=== PATIENT | female | born 1990 ===

== ENCOUNTER → 2021-06-08 | Outpatient (CLI) | payer SELFPAY ==
[2021-06-09 17:05] LABS: CORONAVIRUS (COVID19) CSH-NRL Positive (Negative)
== END ==
LOC: LAB SHORT 08:09
PROVIDERS: Physician Assistant
DX: U07.1 COVID-19 (principal)
CPT/HCPCS: U0003

== ENCOUNTER → 2024-02-19 | Outpatient (CLI) | payer OTHER ==
[2024-02-24 15:44] LABS: HPV HIGH RISK BY TMA Not Detected; HPV SOURCE Cervical
== END | disposition home or self-care (01) ==
LOC: LAB 10:42 → LAB SHORT 10:42
PROVIDERS: Advanced Practice Midwife
DX: Z01.419 Encounter for gynecological examination (general) (routine) without abnormal findings (principal)
CPT/HCPCS: 87624; G0123

== ENCOUNTER → 2024-07-29 | Outpatient (CLI) | payer OTHER | END | disposition home or self-care (01) | LOC: LAB SHORT 15:34 → LAB 15:34 | DX: Z34.03 Encounter for supervision of normal first pregnancy, third trimester (principal) | CPT/HCPCS: 87081; 87150 ==

== ENCOUNTER 2024-09-01 09:00 | Inpatient (IN) | payer OTHER ==
[2024-09-01] VITALS (19 sets, daily range): BP systolic 88–130; BP diastolic 53–90
[~2024-09-01] VITALS: Ht 170.2 cm; Wt 81.0 kg
[2024-09-01] MEDS ORDERED: Ondansetron HCl 2 MG / ML 2ML Vial IV PRN (09:25)
[2024-09-01] MEDS ORDERED: Carboprost Tromethamine 250 MCG/ML 1ML Amp IM PRN (09:25)
[2024-09-01] MEDS ORDERED: Penicillin G Potassium 5,000,000 UNITS in NS 250 ML IV ONE (09:25)
[2024-09-01] MEDS ORDERED: Methylergonovine Maleate 0.2MG / ML 1ML Amp IM PRN (09:25)
[2024-09-01] MEDS ORDERED: Tranexamic Acid 100 ML IV SCH (09:25)
[2024-09-01] MEDS ORDERED: Acetaminophen 500 MG Tab PO PRN (09:25)
[2024-09-01] MEDS ORDERED: Lactated Ringer's 1,000 ML IV PRN ×2 (09:25→21:35)
[2024-09-01] MEDS ORDERED: Calcium Carbonate 500 MG Tab Chew PO SCH (09:25)
[2024-09-01] MEDS ORDERED: Misoprostol 200 MCG Tab PR PRN (09:25)
[2024-09-01] MEDS ORDERED: Oxytocin 10 Unit / ML Vial IM PRN (09:25)
[2024-09-01] MEDS ORDERED: OXYTOCIN/RINGER'S LACTATE 500 ML IV PRN (09:25)
[2024-09-01] MEDS ORDERED: Misoprostol 200 MCG Tab BC PRN (09:25)
[2024-09-01] MEDS ORDERED: ePHEDrine Sulfate 50 MG/ML 1ML Injection XX PRN (09:30)
[2024-09-01] MEDS ORDERED: FentaNYL 2mcg/ml-Bup 0.1% Epd 250 ML EPI PRN (09:30)
[2024-09-01] MEDS ORDERED: Lactated Ringer's 1,000 ML IV SCH ×2 (09:30)
[2024-09-01 09:47] LABS: BASOPHILS ABSOLUTE AUTO 0.04 K/mm3 (0.00-0.23); BASOPHILS PERCENT AUTO 0 % (0-2); EOSINOPHILS ABSOLUTE AUTO 0.05 K/mm3 (0.00-0.68); EOSINOPHILS PERCENT AUTO 1 % (0-6); Hematocrit 34.3 % (33.0-51.0); Hemoglobin 11.1 g/dL (11.5-16.0); IMMATURE GRAN ABSOLUTE AUTO 0.07 K/mm3 (0.00-0.10); IMMATURE GRAN PERCENT AUTO 1 % (0-1); LYMPHOCYTES ABSOLUTE AUTO 2.55 K/mm3 (0.84-5.20); LYMPHOCYTES PERCENT AUTO 27 % (21-46); MONOCYTES ABSOLUTE AUTO 0.67 K/mm3 (0.16-1.47); MONOCYTES PERCENT AUTO 7 % (4-13); Mean Corpuscular HGB 27.3 pg (26.0-34.0); Mean Corpuscular HGB Conc 32.4 g/dL (31.5-36.5); Mean Corpuscular Volume 84 fL (80-100); Mean Platelet Volume 10.8 fL (9.1-12.4); NEUTROPHILS ABSOLUTE AUTO 6.14 K/mm3 (1.96-9.15); NEUTROPHILS PERCENT AUTO 65 % (41-73); Platelet Count 261 K/mm3 (150-400); RDW Standard Deviation 49.1 fL (35.1-46.3); Red Blood Cell Count 4.07 M/mm3 (3.80-5.20); White Blood Cell Count 9.52 K/mm3 (4.00-11.30)
[2024-09-01] MEDS ORDERED: Penicillin G Potassium 2,500,000 UNITS in Dextrose 5% 100 ML IV SCH (14:00)
[2024-09-01] MEDS ORDERED: FentaNYL Citrate 50 MCG/ML 2 ML Injection ONE ×2 (16:42→19:24)
[2024-09-01] MEDS ORDERED: FentaNYL Citrate 50 MCG/ML 2 ML Injection IV PRN (16:45)
[2024-09-01] MEDS ORDERED: Calcium Carbonate 500 MG Tab Chew PO PRN (21:10)
[2024-09-02] VITALS (35 sets, daily range): BP systolic 92–148; BP diastolic 50–78
[2024-09-02] MEDS ORDERED: FentaNYL Citrate 50 MCG/ML 2 ML Injection IV ONE (02:55)
[2024-09-02] MEDS ORDERED: FentaNYL Citrate 50 MCG/ML 2 ML Injection ONE (03:23)
[2024-09-02] MEDS ORDERED: Morphine Sulfate/PF 1 MG/ML 10MLVIAL ONE (03:23)
[2024-09-02] MEDS ORDERED: Lidocaine 2%-Epineph 1:200000 20 ML SDV ONE (03:23)
[2024-09-02] MEDS ORDERED: OXYTOCIN/RINGER'S LACTATE 500 ML IV SCH ×2 (06:40→18:20)
[2024-09-02] MEDS ORDERED: DiphenhydrAMINE HCl 50 MG/ML 1ML Vial IV ONE (08:25)
[2024-09-02] MEDS ORDERED: NIFEdipine 10 MG Cap PO ONE (13:10)
[2024-09-02] MEDS ORDERED: Witch Hazel/Glycerin PADS TOP PRN (18:15)
[2024-09-02] MEDS ORDERED: FLU VACC TS2024-25(6MOS UP)/PF 45 MCG/0.5 ML SYRINGE IM ONE (18:15)
[2024-09-02] MEDS ORDERED: Docusate Sodium 100 MG Cap PO PRN (18:15)
[2024-09-02] MEDS ORDERED: Oxytocin 10 Unit / ML Vial IM ONE (18:15)
[2024-09-02] MEDS ORDERED: Lanolin Cream TOP PRN (18:15)
[2024-09-02] MEDS ORDERED: Ibuprofen 400 MG Tab PO PRN (18:15)
[2024-09-02] MEDS ORDERED: Ketorolac Tromethamine 30mg Vial IV PRN (18:20)
[2024-09-02] MEDS ORDERED: Methylergonovine Maleate 0.2MG / ML 1ML Amp IM PRN (18:20)
[2024-09-02] MEDS ORDERED: Lactated Ringer's 1,000 ML IV SCH (18:20)
[2024-09-02] MEDS ORDERED: Acetaminophen 500 MG Tab PO PRN (18:20)
[2024-09-02] MEDS ORDERED: Polyethylene Glycol 3350 17 gm PO PRN (18:20)
[2024-09-02] MEDS ORDERED: Misoprostol 200 MCG Tab PR PRN (18:25)
[2024-09-02] MEDS ORDERED: Carboprost Tromethamine 250 MCG/ML 1ML Amp IM PRN (18:25)
[2024-09-02] MEDS ORDERED: Benzocaine Topical Anesthetic Spray 60GM TOP PRN (18:25)
[2024-09-03 08:55] VITALS: BP 114/80
[2024-09-03] MEDS ORDERED: Prenatal Vit/FE Fumarate/FA 1 Tab PO SCH (09:00)
[2024-09-03 13:00] VITALS: BP 131/83
[2024-09-03 20:06] VITALS: BP 117/73
[2024-09-04 00:33] VITALS: BP 124/71
[2024-09-04 05:14] VITALS: BP 111/61
[2024-09-04 09:04] VITALS: BP 118/72
== END 2024-09-04 10:35 | disposition home or self-care (01) | DRG 807 ==
LOC: OBS 09:00 → BC 09:00 → OBS 09:24 → BC 09:24
PROVIDERS: ADMIT Advanced Practice Midwife
PROC: 10E0XZZ Delivery of Products of Conception, External Approach (ICD-10-PCS; principal; 2024-09-02)
PROC: 0KQM0ZZ Repair Perineum Muscle, Open Approach (ICD-10-PCS; 2024-09-02)
PROC: 10H07YZ Insertion of Other Device into Products of Conception, Via Natural or Artificial Opening (ICD-10-PCS; 2024-09-02)
PROC: 00HU33Z Insertion of Infusion Device into Spinal Canal, Percutaneous Approach (ICD-10-PCS; 2024-09-02)
PROC: 3E0R3BZ Introduction of Anesthetic Agent into Spinal Canal, Percutaneous Approach (ICD-10-PCS; 2024-09-02)
DX: O48.0 Post-term pregnancy (principal); Z37.0 Single live birth; Z3A.40 40 weeks gestation of pregnancy; O99.824 Streptococcus B carrier state complicating childbirth; O42.02 Full-term premature rupture of membranes, onset of labor within 24 hours of rupture; O70.1 Second degree perineal laceration during delivery
CPT/HCPCS: 36415; 51702; 59025; 85025; 86850; 86900; 86901; 99214; A9270; J1200; J1885; J2274; J2540; J2590; J3010; J7050; J7120